=== PATIENT | female | born 1970 | race Caucasian/White ===

== ENCOUNTER → 2019-12-03 | Outpatient (CLI) | payer BC | LOC: CARDLAB 11-30 14:37 → CARDREHAB 15:54 | DX: G47.8 Other sleep disorders (principal); G47.10 Hypersomnia, unspecified | CPT/HCPCS: G0399 ==

== ENCOUNTER → 2020-07-13 | Outpatient (REF) | LOC: LAB 14:40 | DX: W57.XXXA Bitten or stung by nonvenomous insect and other nonvenomous arthropods, initial encounter (principal) ==

== ENCOUNTER → 2021-01-15 | Outpatient (CLI) | payer BC | LOC: RAD 09:15 | DX: K80.20 Calculus of gallbladder without cholecystitis without obstruction (principal); K82.8 Other specified diseases of gallbladder ==